=== PATIENT | female | born 1970 | race Caucasian/White ===

== ENCOUNTER 2019-12-23 14:15 | Outpatient (CLI) | payer BC, SELFPAY ==
--- NOTE | ~2019-12-23 | MM_ITS ---
EXAMINATION: MM screening [facility] BI w celia HISTORY: Screening mammogram TECHNIQUE: Craniocaudal and mediolateral oblique 3-D tomosynthesis images were obtained and synthetic 2-D images were generated. CAD analysis was submitted and interpreted. COMPARISON: 12/09/2018, 11/21/2017, 11/14/2016 bilateral digital screening mammogram examinations were a vailable for review BREAST PARENCHYMAL COMPOSITION: The breasts are almost entirely fatty. FINDINGS: There is no evidence of suspicious mass, calcification, or architectural distortion to sugg est malignancy in either breast. There has been no suspicious interval change. IMPRESSION: 1. No mammographic evidence of malignancy. 2. Recommend routine screening mammography in one year. BI-RADS Category 1: Negative Reviewed, dictated and finalized at location A.
== END 2019-12-23 14:16 | disposition home or self-care (01) ==
LOC: ANHIMG 14:21
PROVIDERS: PCP Internal Medicine; Visit Provider Internal Medicine
DX: Z12.31 Encounter for screening mammogram for malignant neoplasm of breast (principal)
CPT/HCPCS: 77063; 77067

== ENCOUNTER 2020-12-28 14:29 | Outpatient (CLI) | payer BC, SELFPAY ==
--- NOTE | ~2020-12-28 | MM_ITS ---
EXAMINATION: MM screening [facility] BI w celia HISTORY: Screening mammogram TECHNIQUE: Craniocaudal and mediolateral oblique 3-D tomosynthesis images were obtained and synthetic 2-D images were generated. CAD analysis was submitted and interpreted. COMPARISON: 12/23/2019, 12/09/2018 BREAST PARENCHYMAL COMPOSITION: There are scattered areas of fibroglandular density. FINDINGS: There is no evidence of suspicious mass, calcification, or architectural distortion to sugg est malignancy in either breast. There has been no suspicious interval change. IMPRESSION: 1. No mammographic evidence of malignancy. 2. Recommend routine screening mammography in one year. BI-RADS Category 1: Negative Reviewed, dictated and finalized at location A.
== END 2020-12-28 14:30 | disposition home or self-care (01) ==
LOC: ANHIMG 14:31
PROVIDERS: PCP Internal Medicine; Visit Provider Internal Medicine
DX: Z12.31 Encounter for screening mammogram for malignant neoplasm of breast (principal)
CPT/HCPCS: 77063; 77067

== ENCOUNTER 2021-07-14 11:08 | Outpatient (CLI) | payer BC, SELFPAY ==
--- NOTE | ~2021-07-14 | XR_ITS ---
EXAMINATION: XR chest 2V EXAM DATE: 07/14/2021 11:47 INDICATION: Dyspnea worse x1mo, chest pain from vomiting x1mo. TECHNIQUE: Frontal and lateral projections of the chest obtained and reviewed. Comparison is made to prior examination from 10/14/2017. FINDINGS: There are cholecystectomy clips. The lungs are clear. There are no pleural effusions. Th e cardiomediastinal silhouette is within normal limits. There is no pneumothorax suspected. The bon es and soft tissues are unremarkable. There are cholecystectomy clips. IMPRESSION: No acute cardiopulmonary findings. Reviewed, dictated and finalized at location B.
--- NOTE | ~2021-07-14 | CT_ITS ---
EXAMINATION: CTA chest PE protocol DATE: 07/14/2021 17:55 INDICATION: Dyspnea. TECHNIQUE: Computed tomography angiography (CTA) of the chest was performed with 100 mL Omnipaque-350 intravenous contrast timed to evaluate the pulmonary arteries. Coronal maximum intensity projection 3D-reconstructions were created by the technologist. Automated exposure control and iterative reconst ruction technique were employed. The dose-length product was 985.44 mGy-cm. COMPARISON: Chest 2 views 07/14/2021 FINDINGS: There is a 5 mm nodule at minor fissure, likely benign. No pleural effusion. The heart size is normal. No pericardial effusion. There is no pulmonary embolus. There is diffuse hepatic steatosi s. There are changes of cholecystectomy. There are 3 stones in left kidney measuring up to 9 mm. Ther e is mild thoracic spondylosis. There is a is mild chronic anterior wedging of multiple thoracic vert ebral bodies. IMPRESSION: 1. No pulmonary embolus. 2. Diffuse hepatic steatosis. 3. Nonobstructing left kidney stones. Reviewed, dictated and finalized at location A.
[2021-07-14 11:26] LABS: Basophils Absolute Auto 0.06 K/mm3 (0.00-0.10); Basophils Percent Auto 0.7 % (0.0-1.0); Eosinophils Absolute Auto 0.41 K/mm3 (0.02-0.50); Eosinophils Percent Auto 4.7 % (1.0-6.0); Hematocrit 44.7 % (35.0-49.0); Immature Granulocyte Absolute 0.04 K/mm3 (0.00-0.00); Immature Granulocyte Percent A 0.5 % (0.0-0.0); Lymphocytes Absolute Auto 2.52 K/mm3 (1.10-4.50); Lymphocytes Percent Auto 28.7 % (18.0-42.0); Mean Corpuscular HGB Conc 33.6 g/dL (32.0-36.0); Mean Corpuscular Hemoglobin 32.1 pg (27.0-31.0); Mean Corpuscular Volume 95.7 fL (78.0-102.0); Mean Platelet Volume 8.8 fl (9.2-11.8); Monocytes Absolute Auto 0.54 K/mm3 (0.10-0.90); Monocytes Percent Auto 6.2 % (2.0-11.0); Neutrophils Absolute Auto 5.2 K/mm3 (1.7-7.2); Neutrophils Percent Auto 59.2 % (50.0-70.0); Platelet Count Result 233 K/mm3 (150-420); Red Blood Count 4.67 M/mm3 (4.20-5.40); Red Cell Distribution Width 12.8 % (11.6-14.4); White Blood Count 8.8 K/mm3 (4.8-10.8)
[2021-07-14 11:36] LABS: Hemoglobin A1C 6.2 % (<5.7)
[2021-07-14 11:42] LABS: D Dimer 0.61 mg/L (0.19-0.50)
[2021-07-14 11:49] LABS: Alanine Aminotransferase 36 U/L (14-59); Alkaline Phosphatase 70 U/L (46-116); Anion Gap 12 mmol/L (8-16); Aspartate Amino Transferase 43 U/L (15-37); Bilirubin,Total 0.4 mg/dL (0.00-1.00); Blood Urea Nitrogen 12 mg/dL (7-18); Calcium 8.4 mg/dL (8.5-10.1); Carbon Dioxide 24 mmol/L (21-32); Chloride 104 mmol/L (98-108); Estimated Glomerular Filt Rate > 60; Glucose 113 mg/dL (70-99); NT Pro B Type Natriuretic Pept 82 pg/mL (0-125); Osmolality Calculated 290 mOsm/kg (285-295); Potassium 4.2 mmol/L (3.5-5.1); Sodium 140 mmol/L (136-145); Thyroid Stimulating Hormone 4.72 uIU/mL (0.36-3.74); Total Protein 6.7 g/dL (6.4-8.2)
== END 2021-07-14 11:09 | disposition home or self-care (01) ==
PROVIDERS: PCP Internal Medicine; Visit Provider Internal Medicine
DX: R06.00 Dyspnea, unspecified (principal); R79.1 Abnormal coagulation profile; R07.9 Chest pain, unspecified; R73.03 Prediabetes
CPT/HCPCS: 36415; 71046; 71275; 80053; 83036; 83880; 84443; 85025; 85380; Q9967

== ENCOUNTER 2021-08-23 08:52 | Outpatient (CLI) | payer BC, SELFPAY ==
--- NOTE | 2021-08-23 09:05 | PC.NURSE ---
Pt to room 210 amb. A&Ox3. Pt has no complaints or concerns. Read and signed [facility] consent. Has no questions. Oriented to room. Call granados in reach. Reminded to call with needs.
[2021-08-23] MEDS: FAMOTIDINE 20 MG TABLET PO (09:25)
[2021-08-23] MEDS: diphenhydrAMINE HCl CAP 25 MG CAPSULE PO (09:25)
[2021-08-23] MEDS: ACETAMINOPHEN 325 MG TABLET 650 MG PO (09:25)
[2021-08-23 09:45] VITALS: BP 127/85; PULSE 90; RESP 20; TEMP 36.7; O2SAT 94
--- NOTE | 2021-08-23 11:18 | PC.NURSE ---
Pt has no questions or complaints. Tolerated infusion well. Discharged to home amb per self.
== END 2021-08-23 08:53 | disposition home or self-care (01) ==
LOC: CHSTREATRM 08:54
PROVIDERS: PCP Internal Medicine; Visit Provider Internal Medicine
DX: U07.1 COVID-19 (principal); I10 Essential (primary) hypertension
CPT/HCPCS: A9270; J7050; M0243; Q0244

== ENCOUNTER 2022-01-17 16:42 | Outpatient (CLI) | payer BC, SELFPAY ==
--- NOTE | ~2022-01-17 | MM_ITS ---
EXAMINATION: MM screening [facility] BI w celia HISTORY: Screening mammogram TECHNIQUE: Craniocaudal and mediolateral oblique 3-D tomosynthesis images were obtained and synthetic 2-D images were generated. CAD analysis was submitted and interpreted. COMPARISON: 12/28/2020, 12/23/2019, 12/09/2018 bilateral screening mammogram examinations BREAST PARENCHYMAL COMPOSITION: The breasts are almost entirely fatty. FINDINGS: There is no evidence of suspicious mass, calcification, or architectural distortion to sugg est malignancy in either breast. There has been no suspicious interval change. IMPRESSION: 1. No mammographic evidence of malignancy. 2. Recommend routine screening mammography in one year. BI-RADS Category 1: Negative Reviewed, dictated and finalized at location A.
== END 2022-01-17 16:43 | disposition home or self-care (01) ==
LOC: ANHIMG 16:45
PROVIDERS: PCP Internal Medicine; Visit Provider Internal Medicine
DX: Z12.31 Encounter for screening mammogram for malignant neoplasm of breast (principal)
CPT/HCPCS: 77063; 77067

== ENCOUNTER 2022-01-26 14:42 | Outpatient (CLI) | payer BC, SELFPAY ==
--- NOTE | ~2022-01-26 | XR_ITS ---
XR shoulder LT min 2V DATE: 01/26/2022 15:01 INDICATION: Left shoulder pain. No known injury. TECHNIQUE: 5 views COMPARISON: None FINDINGS: Osteopenia. There is joint space narrowing and spurring at the glenohumeral joint consisten t with osteoarthritis. No fracture, dislocation, periosteal reaction or bone destruction or abnormal soft tissue calcificati on. IMPRESSION: Glenohumeral osteoarthritis Reviewed, dictated and finalized at location A. IMPRESSION: Glenohumeral osteoarthritis
== END 2022-01-26 14:43 | disposition home or self-care (01) ==
LOC: CHSIMG 14:43
PROVIDERS: PCP Internal Medicine; Visit Provider Internal Medicine
DX: M25.512 Pain in left shoulder (principal)
CPT/HCPCS: 73030

== ENCOUNTER 2022-05-14 16:53 | Outpatient (RCR) | payer BC, SELFPAY ==
--- NOTE | 2022-05-14 18:00 | PTOPEVAL ---
Thank you for referring iSlvana Mckeon to [facility].? The patient is scheduled to be seen for therapy? 1x/week for 8 visits. Please review, sign, date and return this plan of care WOOD. I agree with and certify that the following plan of care is medically necessary. Referring Physician Date Admitting Provider: Attending Provider: Jesus Wesley, DO Referring Provider: *PT Outpatient Evaluation Start: 05/14/22 16:54 Freq: Status: Active Protocol: Document 05/14/22 16:55 [facility] (Rec: 05/14/22 17:57 [facility] [id number]) Therapy Assessment Status Assessment Status Assessment Status Evaluation Evaluation Information Problem Diagnosis L shoulder pain Onset 05/13/2021 Subjective Information Pt reports insidious onset of Query Text:As Reported By Patient/ L shoulder pain over the past Family year. She has not had MRI but has had xray reporting osteoarthritis. reports frozen shoulder. She has had a few injections which have provided short term relief, however, pain comes back each time. She had her most recent injection last week and has also been given meloxicam which seem to be helping so far. reports the plan is to attempt PT, then do an MRI if pain does not improve, and use manipulation under anesthesia as last resort. Pt reports most pain when reaching out to side or behind back. Pain is worse at the end of the day, especially after work. 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 Prior Level of Function Activity Level (Last 3 Months) Occupation Cleans houses Hand Dominance Right Activity of Daily Living Ability Independent Indoor/Home Mobility Independent Community Mobility Independent Stairs Ability Independent Functional Cognition (Planning, Shopping Independent , Taking Medications) Cooking Yes Cleaning Yes Laundry Yes Shopping Yes Driving Yes Pain Assessment Timing of Pain Assessment Timing of Pain Assessment
== END 2022-05-14 18:25 | disposition home or self-care (01) ==
LOC: CHSPT 16:53
PROVIDERS: Visit Provider Orthopaedic Surgery
DX: M25.512 Pain in left shoulder (principal)
CPT/HCPCS: 97110; 97161

== ENCOUNTER 2023-08-10 10:31 | Outpatient (CLI) | payer OTHER, SELFPAY ==
--- NOTE | ~2023-08-10 | MM_ITS ---
EXAMINATION: MM screening [facility] BI w celia HISTORY: Screening mammogram TECHNIQUE: Craniocaudal and mediolateral oblique 3-D tomosynthesis images were obtained and synthetic 2-D images were generated. CAD analysis was submitted and interpreted. COMPARISON: January 17, 2022, December 28, 2020, December 23, 2019 bilateral screening mammogram examinations BREAST PARENCHYMAL COMPOSITION: The breasts are almost entirely fatty. FINDINGS: There is no evidence of suspicious mass, calcification, or architectural distortion to sugg est malignancy in either breast. There has been no suspicious interval change. IMPRESSION: 1. No mammographic evidence of malignancy. 2. Recommend routine screening mammography in one year. BI-RADS Category 1: Negative Reviewed, dictated and finalized at location B. ESTIMATOR
== END 2023-08-10 10:32 | disposition home or self-care (01) ==
PROVIDERS: PCP Internal Medicine; Visit Provider Internal Medicine
DX: Z12.31 Encounter for screening mammogram for malignant neoplasm of breast (principal)
CPT/HCPCS: 77063; 77067

== ENCOUNTER 2024-11-05 14:44 | Outpatient (CLI) | payer BC, SELFPAY ==
--- NOTE | ~2024-11-05 | MM_ITS ---
EXAMINATION: MM screening [facility]a BI w celia HISTORY: Screening TECHNIQUE: Craniocaudal and mediolateral oblique 3-D tomosynthesis images were obtained and synthetic 2-D images were generated. CAD analysis was submitted and interpreted. COMPARISON: Comparison to multiple prior studies sequentially, with oldest reviewed study dated 11/21. BREAST PARENCHYMAL COMPOSITION: Not Dense: The breasts are almost entirely fatty. FINDINGS: There is no evidence of suspicious mass, calcification, or architectural distortion to sugg est malignancy in either breast. There has been no suspicious interval change. IMPRESSION: 1. No mammographic evidence of malignancy. 2. Recommend routine screening mammography in one year. BI-RADS Category 1: Negative Reviewed, dictated and finalized at location B. IONAL DISABILITIES TEACHER
--- OUTSIDE RECORDS SUMMARY | 2024-11-05 15:05 | XMS_ITS | Clinical Summary ---
Author Organization [facility] Address [address] [place] [id number] Care Team Providers Care Community Education Specialist Name Role Phone Eris Fischer MD Primary Care Provider [phone] Allergies No known active allergies Medications escitalopram (LEXAPRO) 20 MG tablet 04/30/2022 Active amLODIPine (NORVASC) 10 MG tablet 04/16/2022 Active zolpidem (AMBIEN) 10 MG tablet TAKE 1/2 TO 1 TABLET BY MOUTH AT BEDTIME DIRECTED 02/14/2022 Active losartan (COZAAR) 100 MG tablet 04/16/2022 Active meloxicam (MOBIC) 15 MG tabletIndicatio ns:Primary osteoarthritis, left shoulder Take 1 tablet (15 mg total) by mouth daily. 30 tablet 2 10/22/2022 Active cyclobenzaprine (FLEXERIL) 10 MG tabletIndicatio ns:Primary osteoarthritis, left shoulder TAKE ONE TABLET BY MOUTH THREE TIMES A DAY NEEDED FOR MUSCLE SPASMS 30 tablet 02/26/2023 Active Active Problems Problem Noted Date Diagnosed Date Leg pain 01/15/2023 Numbness and tingling 01/15/2023 Primary osteoarthritis, left shoulder 05/13/2022 Assessment & Plan (01/15/2023 3:58 PM CDT): The patient elected for a steroid injection into her left shoulder today. She tolerated this well. She will follow up as needed. Assessment & Plan (05/13/2022 3:37 PM CDT): We discussed the risks, benefits and alternatives. Steroid is injected today. Begin formal physical therapy. Continue meloxicam. Follow-up in 6 weeks for repeat evaluation. Consider MRI in the future. If this does not give her the relief that she is looking for may need to consider further evaluation to the cervical spine as she does have a history of neck pain as well as numbness and tingling Neck pain 05/13/2022 Assessment & Plan (05/13/2022 3:38 PM CDT): Along with numbness and tingling to the upper extremities. If no significant improvement with the shoulder consider MRI of the cervical spine. Family History Medical History Relation Comments No Known Problems Father Cancer Maternal Grandmother No Known Problems Mother Relation Status Comments Father Maternal Grandmother Mother Social History Tobacco Use Types Packs/Day Years Used Date Smoking Tobacco: Former Cigarettes Q uit: 2019 Smokeless Tobacco: Never Tobacco Cessation:Counseling Given: No Comments:na Alcohol Use Standard Drinks/Week Comments Not Currently 0 (1 standard drink = 0.6 oz pur e alcohol) PHQ-2 Answer Date Recorded Patient Health Questionnaire-2 Score 0 10/15/2023 Comments Unknown Sex and Gender Information Value Date Recorded Sex Assigned at Not on file Legal Sex Female 3:07 PM CDT Gender Identity Not on file Sexual Orientation Not on file Last Filed Vital Signs Vital Sign Reading Time Taken Comments Blood Pressure 122/75 08/04/2024 1:07 PM SILK SCREENER Pulse 88 08/04/2024 1:07 PM SILK SCREENER Temperature 36.4 C (97.6 F) 08/04/2024 1:07 PM SILK SCREENER Respiratory Rate 17 01/16/2024 3:50 PM CDT Oxygen Saturation 98% 08/04/2024 1:07 PM SILK SCREENER Inhaled Oxygen Concentration - - Weight 87.7 kg (193 lb 6.4 oz) 08/04/2024 1:07 P M SILK SCREENER Height 160 cm (5' 3 ) 08/04/2024 1:07 PM SILK SCREENER Body Mass Index 34.26 08/04/2024 1:07 PM SILK SCREENER Plan of Treatment Health Maintenance Due Date Last Done Comments Cervical Cancer Screening Pa p Smear (Age 30 to 64) Every 3 Years 1971 Colorectal Cancer Screening Colonoscopy (10 Years) 1971 Annual Physical 1974 Hepatitis C 1989 Hepatitis B Vaccines (1 of 3 - 19+ 3-dose series) 1990 Cervical Cancer Screening Pa p with HPV Testing (Age 30 to 64) Every 5 Years 2001 Cervical Cancer Screening wi th HPV 2001 Mammogram Screening 2011 Zoster Vaccines (1 of 2) 2021 COVID-19 Vaccine (3 - 2023-2 5 season) 2024 03/31/2021, 03/10/2021 Influenza Adult (#1) 2024 PHQ-2 (Physician [place]) 09/30/2024 10/15/2023 PHQ-2 (Physician [place]) 10/15/2024 10/15/2023 DTaP, Tdap and Td Vaccines ( 2 - Td or Tdap) 11/20/2027 11/20/2017 Meningococcal B Vaccine Aged Out No l onger eligible based on patient's age to complete this topic Meningococcal Vaccine Aged Out No shane alexander eligible based on patient's age to complete this topic Pneumococcal Vaccine: Pediatrics (0 to 5 Years) and At-Risk Patients (6 to 64 Years) Aged Out No longer eligible b ased on patient's age to complete this topic RSV Immunizations Under 20 Months Aged Out No longer eligible b ased on patient's age to complete this topic Insurance Care Teams Community Education Specialist Relationship Specialty Start Date End Date Eris Fischer MD [address] [place], [place] [id number] PCP - General EMERGENCY MEDICINE 08/04/24
--- OUTSIDE RECORDS SUMMARY | 2024-11-05 15:05 | XMS_ITS | Clinical Summary ---
Author Organization [facility] Address [address] [place] [id number] Care Team Providers Care Belt Fixer Name Role Phone Gavin Hernandez MD Primary Care Provider [phone] Allergies No known active allergies Medications escitalopram (LEXAPRO) 20 mg tablet 05/26/2021 Active zolpidem (AMBIEN) 10 mg tablet TAKE 1/2 TO 1 TABLET BY MOUTH AT BEDTIME DIRECTED 06/02/2021 Active losartan (COZAAR) 100 mg tablet Take 1 tablet (100 mg total) by mouth daily 30 tablet 11 07/26/2021 Active amLODIPine (NORVASC) 10 mg tablet Take 1 tablet (10 mg total) by mouth daily 30 tablet 11 07/26/2021 Active Active Problems No known active problems Family History Relation Name Status Comments Father Alive Mother Alive Sister Alive Social History Tobacco Use Types Packs/Day Years Used Date Smoking Tobacco: Former Cigarettes 1 30 Personal Safety Answer Date Recorded Getting School Help Needed Not on file 12/12 Comments Unknown Sex and Gender Information Value Date Recorded Sex Assigned at Not on file 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 Gender Identity Not on file Sexual Orientation Not on file Obstetrics History Last Filed Vital Signs Vital Sign Reading Time Taken Comments Blood Pressure 156/112 07/26/2021 8:59 AM CDT Pulse 91 07/26/2021 8:59 AM CDT Temperature - - Respiratory Rate 15 07/26/2021 8:59 AM CDT Oxygen Saturation - - Inhaled Oxygen Concentration - - Weight 104.8 kg (231 lb) 07/26/2021 8:59 AM CDT Height 160 cm (5' 3 ) 07/26/2021 8:59 AM CDT Body Mass Index 40.92 07/26/2021 8:59 AM CDT Plan of Treatment Not on file Insurance COUNTS INCLUDE 234 BEDS AT [facility] Care Teams Belt Fixer Relationship Specialty Start Date End Date Gavin Hernandez MD PCP - General Internal Medicine 07/20/21
--- OUTSIDE RECORDS SUMMARY | 2024-11-05 15:05 | XMS_ITS | Referral Summary ---
Author Organization [facility] Address [address] [place] [id number] Care Team Providers Care Assistant County Engineer Name Role Phone Gavin Hernandez MD Primary Care Provider [phone] Allergies No known active allergies Medications escitalopram [...] Active Active Problems No known active problems Social History Tobacco Use Types Packs/Day Years Used Date Smoking Tobacco: Former Cigarettes 30 Personal Safety Answer Date Recorded Getting School Help Needed Not on file 12/12 Comments Unknown Sex and Gender Information Value Date Recorded Sex Assigned at Not on file 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
== END 2024-11-05 14:45 | disposition home or self-care (01) ==
PROVIDERS: PCP Nurse Practitioner Family; Visit Provider Nurse Practitioner Family
DX: Z12.31 Encounter for screening mammogram for malignant neoplasm of breast (principal)
CPT/HCPCS: 77063; 77067

== ENCOUNTER 2025-01-20 15:26 | Outpatient (CLI) | payer BC, SELFPAY ==
--- NOTE | ~2025-01-20 | XR_ITS ---
[id number] 01/20/2025 15:37 Indication: Left knee pain Procedure: 2 views left knee Comparison: No prior studies for comparison. Findings: Mild osteoarthritis of the left knee. No fracture, subluxation or dislocation. No joint eff usion. Impression: 1: Mild osteoarthritis of the left knee. Reviewed, dictated and finalized at location A. Impression: 1: Mild osteoarthritis of the left knee.
== END 2025-01-20 15:27 | disposition home or self-care (01) ==
LOC: GOSHIMG 15:27
PROVIDERS: PCP Nurse Practitioner Family; Visit Provider Nurse Practitioner Family
DX: M17.12 Unilateral primary osteoarthritis, left knee (principal)
CPT/HCPCS: 73560

== ENCOUNTER 2025-07-22 08:49 | Outpatient (CLI) | payer BC, SELFPAY ==
--- OUTSIDE RECORDS SUMMARY | 2025-07-22 09:01 | XMS_ITS | Clinical Summary ---
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
[2025-07-22 18:54] LABS: Hematocrit 42.8 % (37.0-47.0); Hemoglobin 13.4 g/dL (12.0-15.0); Immature Granulocyte Percent A 0.2 % (0-0.5); Lymphocytes Absolute Auto 2.05 K/mm3 (0.9-3.2); Mean Corpuscular HGB Conc 31.3 g/dl (32-36); Mean Corpuscular Hemoglobin 28.8 pg (26-34); Mean Corpuscular Volume 92.0 fl (80-100); Nucleated Red Blood Cells Absolute Auto 0.000 K/mm3 (0.0-0.012); Nucleated Red Blood Cells Perc 0.0 % (0.0-0.2); Platelet Count Result 263 k/mm3 (150-375); Red Blood Count 4.65 M/mm3 (4.2-5.4); White Blood Count 6.4 K/mm3 (4.5-10.0)
[2025-07-22 18:56] LABS: Alanine Aminotransferase 15 U/L (6-35); Albumin Level 4.1 g/dL (3.5-5.1); Alkaline Phosphatase 113 U/L (38-126); Anion Gap 8 mmol/L (4-12); Aspartate Amino Transferase 26 U/L (14-36); Bilirubin,Total 0.3 mg/dL (0.2-1.3); Blood Urea Nitrogen 14 mg/dL (7-17); Calcium 9.0 mg/dL (8.4-10.2); Carbon Dioxide 26 mmol/L (22-30); Chloride 107 mmol/L (98-107); Cholesterol 247 mg/dL (0-200); Estimated Glomerular Filt Rate > 60; Glucose 113 mg/dL (65-110); HDL Direct 42 mg/dL; Potassium 4.3 mmol/L (3.4-5.0); Sodium 141 mmol/L (137-145); Total Protein 7.1 g/dL (6.3-8.2); Triglycerides 158 mg/dL (<150)
[2025-07-22 23:03] LABS: Hemoglobin A1C 5.3 % (<5.7)
[2025-07-22 23:56] LABS: Thyroid Stimulating Hormone Reflex 4.890 uIU/mL (0.465-4.68)
[2025-07-23 04:27] LABS: Free T4 Free Thyroxine Reflex 0.85 ng/dL (0.78-2.19)
[2025-07-23 05:37] LABS: Total Triiodothyronine (T3) 1.41 NG/ML (0.82-1.58)
== END 2025-07-22 08:50 | disposition home or self-care (01) ==
LOC: ANHGOSHLAB 08:50
PROVIDERS: PCP Nurse Practitioner Family; Visit Provider Nurse Practitioner Family
DX: I10 Essential (primary) hypertension (principal); E03.9 Hypothyroidism, unspecified; E78.5 Hyperlipidemia, unspecified; R73.03 Prediabetes; F41.9 Anxiety disorder, unspecified; E55.9 Vitamin D deficiency, unspecified
CPT/HCPCS: 36415; 80053; 80061; 82306; 83036; 84439; 84443; 84480; 85025